=== PATIENT | female | born 1955 | race Caucasian/White ===

== ENCOUNTER 2018-03-04 13:29 | Observation (INO) ==
[2018-03-04 15:11] LABS: Basophils # 0.1 10*3/uL (0.0-0.2); Basophils % 0.7 % (0.0-0.8); Eosinophils # 0.1 10*3/uL (0.0-0.87); Eosinophils % 1.3 % (0.00-10.9); Hematocrit 44.7 VOL% (35.7-47.0); Hemoglobin 14.5 GM/DL (12.0-16.0); Immature Granulocytes % 0.3 %; Immature Granulocytes Absolute 0.03 #; Lymphocytes % 21.7 % (21.3-54.2); Mean Corpuscular HGB Conc 32.4 GM/DL (32-36); Mean Corpuscular Hemoglobin 30 PG (27-34); Mean Corpuscular Volume 92.2 FL (87-102); Mean Platelet Volume 10.4 FL (9.6-12.0); Monocytes # 0.8 10*3/uL (0.11-0.8); Monocytes % 8.8 % (1.7-12.7); Neutrophils % 67.2 % (38.7-73.9); Platelet Count 300 T/CUMM (130-400); Red Blood Count 4.85 MC/CUMM (3.8-5.5); Red Cell Distribution Width 12.9 % (9.3-17.3)
[2018-03-04 15:20] LABS: INR 0.9
[2018-03-04 15:36] LABS: Alanine Aminotransferase 24 U/L (13-56); Alkaline Phosphatase 90 U/L (45-117); Aspartate Amino Transferase 17 U/L (0-37); Bilirubin,Total < 0.39 MG/DL (0.2-1.0); Blood Urea Nitrogen 13 MG/DL (7-18); Calcium 9.7 MG/DL (8.5-10.1); Glucose 91 MG/DL (74-106); Osmolality,Calculated 274.7 MOS/KG (273-304); Potassium 4.5 MMOL/L (3.5-5.1); Sodium 138 MMOL/L (136-145)
[2018-03-04] MEDS ORDERED: NITROGLYCERIN SL 0.4 MG TABLET SL ONE (16:32)
[2018-03-04] MEDS ORDERED: NITROGLYCERIN SL 0.4 MG TABLET SL STA (16:37)
[2018-03-04 16:39] LABS: Troponin I < 0.015 NG/ML (0.00-0.045)
[2018-03-04] MEDS ORDERED: HYDROmorphone 2 MG/1 ML VIAL ONE (16:51)
[2018-03-04] MEDS ORDERED: HYDROmorphone 2 MG/1 ML VIAL IV STA (16:58)
[2018-03-04] MEDS ORDERED: ONDANSETRON 4 MG/2 ML VIAL IV PRN (19:05)
[2018-03-04] MEDS ORDERED: ACETAMINOPHEN 325 MG TABLET PO PRN (19:05)
[2018-03-04] MEDS ORDERED: ASPIRIN EC 325 MG TABLET PO SCH (21:00)
[2018-03-04] MEDS ORDERED: ATORVASTATIN 20 MG TABLET PO SCH (21:00)
[2018-03-04] MEDS ORDERED: ASPIRIN EC 81 MG TABLET PO SCH (21:00)
[2018-03-04] MEDS ORDERED: PANTOPRAZOLE 40 MG TABLET PO SCH (21:00)
[2018-03-04] MEDS ORDERED: ENOXAPARIN 40 MG/0.4 ML SYRINGE SUBCUT SCH (21:00)
[2018-03-04] MEDS ORDERED: NON-FORMULARY MEDICATION (Varenicline Tartrate [Chantix Starter Month Pack] 1 EACH) PO SCH (21:00)
[2018-03-04] MEDS ORDERED: BLACK COHOSH 540 MG PO SCH (21:00)
[2018-03-04] MEDS: SODIUM CHLORIDE 0.9% 1,000 ML IV SCH (22:30)
[2018-03-05 01:11] LABS: Basophils # 0.1 10*3/uL (0.0-0.2); Basophils % 0.4 % (0.0-0.8); Eosinophils % 0.3 % (0.00-10.9); Hematocrit 41.8 VOL% (35.7-47.0); Hemoglobin 13.5 GM/DL (12.0-16.0); Immature Granulocytes % 0.5 %; Immature Granulocytes Absolute 0.06 #; Lymphocytes # 2.3 10*3/uL (1.4-4.0); Lymphocytes % 18.3 % (21.3-54.2); Mean Corpuscular HGB Conc 32.3 GM/DL (32-36); Mean Corpuscular Hemoglobin 30 PG (27-34); Mean Corpuscular Volume 92.3 FL (87-102); Mean Platelet Volume 10.8 FL (9.6-12.0); Monocytes # 0.8 10*3/uL (0.11-0.8); Monocytes % 6.5 % (1.7-12.7); Neutrophils # 9.3 10*3/uL (1.4-7.4); Platelet Count 285 T/CUMM (130-400); Red Blood Count 4.53 MC/CUMM (3.8-5.5); Red Cell Distribution Width 13.2 % (9.3-17.3); White Blood Count 12.6 T/CUMM (4-12)
[2018-03-05 01:45] LABS: Calcium 8.9 MG/DL (8.5-10.1); Osmolality,Calculated 274.8 MOS/KG (273-304); Potassium 4.3 MMOL/L (3.5-5.1); Risk Ratio 2.94; Thyroid Stimulating Hormone 3.6 uIU/ml (0.358-3.74); VLDL CHOLESTEROL 33.4 MG/DL
[2018-03-05] MEDS: SODIUM CHLORIDE 0.9% 1,000 ML IV SCH (05:59)
[2018-03-05] MEDS ORDERED: LORazepam 2 MG/1 ML VIAL IV ONE (07:17)
[2018-03-05] MEDS ORDERED: MULTIVITAMIN (CENTRUM) TABLET PO SCH (09:00)
[2018-03-05 12:59] VITALS: BP 150/63
== END 2018-03-05 14:06 | disposition home or self-care (01) ==
LOC: N.ED 13:29 → N.EDINP 13:29 → N.4E 19:52
PROVIDERS: ADMIT Emergency Medicine; ATTEND Emergency Medicine